=== PATIENT | male | born 1980 | race African-American/Black ===

== ENCOUNTER 2018-07-18 14:48 | Emergency (ER) | payer SELFPAY ==
[2018-07-18] MEDS ORDERED: ASPIRIN 81 MG TABLET, CHEWABLE PO ONE (16:37)
--- NOTE | 2018-07-18 16:44 | ER Document Report ---
ED Medical Screen (RME) - General Chief Complaint: Chest Pain Stated Complaint: LEG PAIN Time Seen by Provider: 07/18/18 16:43 Primary Care Provider: KURT LANDA MD [Primary Care Provider] - Follow up as needed TRAVEL OUTSIDE OF THE [place] IN LAST 30 DAYS: No - HPI Notes: 07/18/18 16:43 Patient complaint of chest pain and shortness of breath which started 4 days ago. He also complained of left leg pain and swelling and also right leg pain and swelling. 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 On exam patient is obese. Left calf is tender to palpation with edema. - Related Data Allergies/Adverse Reactions: No Known Allergies Allergy (Verified 07/18/18 14:55) Past Medical History - Social History Frequency of alcohol use: Rare Drug Abuse: None Renal/ Medical History: Denies: Hx Peritoneal Dialysis - Immunizations Hx Diphtheria, Pertussis, Tetanus Vaccination: Yes Physical Exam - Vital signs Vitals: Temp Pulse Resp BP Pulse Ox 98.1 F 81 15 128/81 H 93 07/18/18 15:29 07/18/18 15:29 07/18/18 15:29 07/18/18 15:29 07/18/18 15:29 Course - Vital Signs Vital signs: Temp Pulse Resp BP Pulse Ox 98.1 F 80 15 128/81 H 98 07/18/18 15:29 07/18/18 16:39 07/18/18 15:29 07/18/18 15:29 07/18/18 16:39 Doctor's Discharge - Discharge Referrals: KURT LANDA MD [Primary Care Provider] - Follow up as needed
[2018-07-18 17:13] LABS: ABSOLUTE EOSINOPHILS # (AUTO) 0.1 10^3/uL (0.0-0.6); ABSOLUTE LYMPHOCYTES (AUTO) 1.2 10^3/uL (0.5-4.7); ABSOLUTE MONOCYTES (AUTO) 0.3 10^3/uL (0.1-1.4); ABSOLUTE NEUT (AUTO) 2.9 10^3/uL (1.7-8.2); BASOPHILS % (AUTO) 0.7 % (0-2); EOSINOPHILS % (AUTO) 2.9 % (0-6); HEMATOCRIT 43.7 % (37.9-51.0); LYMPHOCYTES % (AUTO) 26.7 % (13-45); MEAN CORPUSCULAR HEMOGLOBIN 29.1 pg (27.0-33.4); MEAN CORPUSCULAR HGB CONC 34.4 g/dL (32.0-36.0); MEAN CORPUSCULAR VOLUME 85 fl (80-97); MONOCYTES % (AUTO) 6.7 % (3-13); PLATELET COUNT 247 10^3/uL (150-450); RED BLOOD COUNT 5.16 10^6/uL (4.35-5.55); RED CELL DISTRIBUTION WIDTH 13.7 % (11.5-14.0); TOTAL CELLS COUNTED % (AUTO) 100 %; WHITE BLOOD COUNT 4.5 10^3/uL (4.0-10.5)
[2018-07-18 17:18] LABS: INTERNATIONAL RATION (INR) 1.02; PROTHROMBIN TIME 13.9 SEC (11.4-15.4)
[2018-07-18 17:19] LABS: PARTIAL THROMBOPLASTIN TIME 34.3 SEC (23.5-35.8)
[2018-07-18 17:31] LABS: D-DIMER < 0.27 ug/mL (0.00-0.50)
[2018-07-18 17:37] LABS: ALANINE AMINOTRANSFERASE 34 U/L (21-72); ALBUMIN 4.6 g/dL (3.5-5.0); ALKALINE PHOSPHATASE 74 U/L (38-126); ANION GAP 9 (5-19); ASPARTATE AMINO TRANSFERASE 25 U/L (17-59); BILIRUBIN,DIRECT 0.2 mg/dL (0.0-0.4); BILIRUBIN,TOTAL 0.5 mg/dL (0.2-1.3); BLOOD UREA NITROGEN 14 mg/dL (7-20); CALCIUM 9.8 mg/dL (8.4-10.2); CARBON DIOXIDE 26 mmol/L (22-30); CHLORIDE 105 mmol/L (98-107); CREATINE KINASE 326 U/L (55-170); GLUCOSE 95 mg/dL (75-110); POTASSIUM 4.2 mmol/L (3.6-5.0); SODIUM 139.7 mmol/L (137-145); TOTAL PROTEIN 7.5 g/dL (6.3-8.2)
--- NOTE | 2018-07-18 17:47 | RADIOLOGY REPORT (SQ) ---
EXAM DESCRIPTION: CHEST SINGLE VIEW COMPLETED DATE/TIME: 07/18/2018 5:16 pm REASON FOR STUDY: chest pain COMPARISON: None. EXAM PARAMETERS: NUMBER OF VIEWS: One view. TECHNIQUE: Single frontal radiographic view of the chest acquired. RADIATION DOSE: NA LIMITATIONS: None. FINDINGS: LUNGS AND PLEURA: No opacities, masses or pneumothorax. No pleural effusion. MEDIASTINUM AND HILAR STRUCTURES: No masses. Contour normal. HEART AND VASCULAR STRUCTURES: Heart normal in size. Normal vasculature. BONES: No acute findings. HARDWARE: None in the chest. OTHER: No other significant finding. IMPRESSION: NO ACUTE RADIOGRAPHIC FINDING IN THE CHEST. TECHNICAL DOCUMENTATION: JOB ID: [id number] [employer]- All Rights Reserved Reading location - IP/workstation name: [email or web address]
[2018-07-18 17:48] LABS: CREATINE KINASE MB 2.08 ng/mL (<4.55); NT PRO BNP 91 pg/mL (<125)
[2018-07-18 17:50] LABS: TROPONIN I < 0.012 ng/mL
--- NOTE | 2018-07-18 19:28 | EKG REPORT ---
SEVERITY:- ABNORMAL ECG - SINUS RHYTHM BORDERLINE LEFT AXIS DEVIATION NONSPECIFIC ST-T CHANGES- INFERIOR LEADS : Confirmed by: Ralf Song MD 18-Jul-2018 19:28:17
--- NOTE | 2018-07-18 23:55 | ER Document Report ---
ED General - General Chief Complaint: Chest Pain Stated Complaint: LEG PAIN Time Seen by Provider: 07/18/18 16:43 Primary Care Provider: KURT LANDA MD [ACTIVE STAFF] - Follow up as needed Notes: Patient is a 37-year-old male who presents the emergency permit with a chief complaint of chest pain and leg pain. 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 He is visiting from [place] and took a long car ride. He is currently on Xarelto. His symptoms started . He continues to have chest pain. TRAVEL OUTSIDE OF THE [place] IN LAST 30 DAYS: No - Related Data Allergies/Adverse Reactions: No Known Allergies Allergy (Verified 07/18/18 14:55) Past Medical History - Social History Smoking Status: Former Smoker Frequency of alcohol use: Rare Drug Abuse: None Family History: Reviewed & Not Pertinent Patient has suicidal ideation: No Patient has homicidal ideation: No Renal/ Medical History: Denies: Hx Peritoneal Dialysis - Immunizations Hx Diphtheria, Pertussis, Tetanus Vaccination: Yes Review of Systems - Review of Systems Notes: REVIEW OF SYSTEMS: CONSTITUTIONAL : Denies recent illness. Denies recent unintentional weight loss. Denies fever, chills, or sweats. EENT: Denies eye, ear, throat, or mouth pain, discharge, or symptoms. Denies nasal or sinus congestion. CARDIOVASCULAR: See HPI RESPIRATORY: Denies shortness of breath, cough, congestion, difficulty kamran athing, or wheezing. GASTROINTESTINAL: Denies nausea, vomiting, and diarrhea. Denies abdominal pain. Denies constipation. GENITOURINARY: Denies difficulty urinating, burning, blood in urine, urgency or frequency. MUSCULOSKELETAL: Denies neck and back pain. Denies joint pain or swelling. SKIN: Denies rash, itchiness, or lesions HEMATOLOGIC : Denies easy bruising or bleeding. LYMPHATIC: Denies swollen, painful, enlarged glands. NEUROLOGICAL: Denies no numbness or tingling denies weakness. Denies headache. Denies altered mental status. Denies alteration in speech. PSYCHIATRIC: Denies stress, anxiety, alteration in sleep patterns, or depression. All other systems reviewed and negative. Physical Exam - Vital signs Vitals: Temp Pulse Resp BP Pulse Ox 98.1 F 81 15 128/81 H 93 07/18/18 15:29 07/18/18 15:29 07/18/18 15:29 07/18/18 15:29 07/18/18 15:29 - Notes Notes: PHYSICAL EXAMINATION: GENERAL: Appears well, healthy, well-nourished, no acute distress. HEAD: Normocephalic, atraumatic. EYES: PERRL, conjunctiva normal, all extraocular movements intact, sclera nonicteric ENT: Moist mucous membranes. NECK: Supple, no noticeable swelling, redness, rash. Normal range of motion. LUNGS: Equal breath sounds bilaterally and clear to auscultation. No wheezes rales or rhonchi. CARDIOVASCULAR: S1-S2, regular rate, regular rhythm. Radial pulses 2+, normal. ABDOMEN: Normoactive bowel sounds. Soft, nontender, no guarding, no rebound tenderness, and no masses palpated. EXTREMITIES: Normal strength and range of motion, no pitting or edema. No cyanosis. NEUROLOGICAL: Moves all extremities upon command. Strength 5/5 in all extr emities. PSYCH: Normal mood, normal affect. SKIN: Warm, dry. No rash, lesions, ulcerations noted. Normal skin turgor. Course - Re-evaluation Re-evalutation: 07/18/18 23:55 The patient's d-dimer is negative for any DVT. He is continuing to ask for a CT of the chest to rule out any PE because he still feels the chest pain. Awaiting callback from Dr. Li for official ultrasound read. 07/19/18 01:47 The patient's CTA is negative at this time. Venous Doppler studies are negative for DVT. I have discussed the results with him. I have given him strict follow-up precautions. He will be discharged with Tylenol for pain control. Verbal discharge instructions were given to the patient. They verbalized understanding. They are stable for discharge. - Vital Signs Vital signs: Temp Pulse Resp BP Pulse Ox 98.1 F 86 18 123/77 100 07/18/18 15:29 07/19/18 02:15 07/19/18 02:15 07/19/18 02:15 07/19/18 02:15 - Laboratory Result Diagrams: 07/18/18 17:00 07/18/18 17:00 Laboratory results interpreted by me: 07/18/18 17:00 Creatine Kinase 326 H - EKG Interpretation by Me Additional EKG results interpreted by me: 07/18/18 23:58 Rate 80. Sinus rhythm. OK 164; QRS 88; QT 388; QTC [address] elevations or depressions. Discharge - Discharge Clinical Impression: Leg swelling Chest pain Qualifiers: Chest pain type: unspecified Qualified Code(s): R07.9 - Chest pain, unspecified Condition: Stable Disposition: HOME, SELF-CARE Additional Instructions: You were seen today in the emergency department for chest pain and leg swelling. Your CT is normal. Your labs are normal. The cause of your chest pain is unknown. Please follow-up with your primary care provider in regards to this visit. Please continue to take your medication as prescribed. You may take Tylenol 1000 mg every 6 hours as needed for pain. If you develop shortness of breath, difficulty breathing, worsening symptoms, or any symptoms that are worrisome to you, please return to the emergency department. Forms: Return to Work Referrals: KURT LANDA MD [ACTIVE STAFF] - Follow up as needed
--- NOTE | 2018-07-19 00:41 | RADIOLOGY REPORT (SQ) ---
US LOWER EXTREMITY VEINS HISTORY: Leg pain and swelling. EXAM DATE: 07/18/2018 16:39 COMPARISON: None. TECHNIQUE: Mccullough-scale, color Doppler and spectral Doppler images of the bilateral lower extremity veins were obtained. FINDINGS: RIGHT: The right common femoral, superficial femoral and popliteal veins are patent and compressible. Normal augmentation and color Doppler blood flow in the aforementioned veins. The visualized calf veins are also patent. LEFT: The left common femoral, superficial femoral and popliteal veins are patent and compressible. Normal augmentation and color Doppler blood flow in the aforementioned veins. The visualized calf veins are also patent. IMPRESSION: No evidence of deep venous thrombosis in the bilateral lower extremities.
--- NOTE | 2018-07-19 01:23 | RADIOLOGY REPORT (SQ) ---
CLINICAL HISTORY: chest pain; DVT COMPARISON: None. TECHNIQUE: CT CHEST ANGIOGRAPHY WITHOUT THEN WITH IV CONTRAST on 07/18/2018 11:47 PM CDT. MIPS reconstructions were generated. This exam was performed according to our departmental dose-optimization program, which includes automated exposure control, adjustment of the mA and/or kV according to patient size and/or use of iterative reconstruction technique. MIP images were generated. FINDINGS: Thoracic aorta is normal in course and caliber without aneurysm or dissection. Pulmonary arteries are adequately opacified without acute or chronic filling defects. The heart is normal in size. There is no pericardial effusion. Intrathoracic lymph nodes are not enlarged. There is no pleural effusion, pleural thickening or pneumothorax. Central airways are patent. Lungs are clear with no consolidation, mass or interstitial lung disease. There are no acute abnormalities within the limited images of the upper abdomen. There are no acute osseous findings. No suspicious bony lesions. IMPRESSION: No aortic dissection or aneurysm. No pulmonary embolus. No pneumonia.
[2018-07-19 02:16] VITALS: BP 123/77
== END 2018-07-19 02:16 | disposition home or self-care (01) ==
LOC: ER 14:48
DX: R07.9 Chest pain, unspecified (principal); M79.89 Other specified soft tissue disorders; Z86.718 Personal history of other venous thrombosis and embolism; Z79.01 Long term (current) use of anticoagulants; Z87.891 Personal history of nicotine dependence
CPT/HCPCS: 36415; 71045; 71275; 80053; 82550; 82553; 83880; 84484; 85025; 85379; 85610; 85730; 93005; 93010; 93970; 99285

== ENCOUNTER 2019-02-27 10:12 | Observation (INO) | payer MEDICAID ==
--- NOTE | 2019-02-27 10:27 | ER Document Report ---
ED Medical Screen (RME) - General Chief Complaint: Abdominal Pain Stated Complaint: ABDOMINAL/SIDE PAIN Time Seen by Provider: 02/27/19 10:21 Mode of Arrival: Wheelchair Information source: Patient Notes: Patient presents complaining of right upper quadrant abdominal pain that radiates through to his back. Patient has a known history of gallstones. Patient denies any urinary symptoms. No nausea vomiting or diarrhea. Pain started at 3:00 this morning. hx: Gallstones, chronic back pain, spinal cord surgery, dyslipidemia, PE, AR I have greeted and performed a rapid initial assessment of this patient. A comprehensive ED assessment and evaluation of the patient, analysis of test results and completion of the medical decision making process will be conducted by additional ED providers. TRAVEL OUTSIDE OF THE [place] IN LAST 30 DAYS: No - Related Data Allergies/Adverse Reactions: No Known Allergies Allergy (Verified 07/18/18 14:55) Past Medical History Renal/ Medical History: Denies: Hx Peritoneal Dialysis - Immunizations Hx Diphtheria, Pertussis, Tetanus Vaccination: Yes Physical Exam - General General appearance: Appears well, Alert Notes: Right upper quadrant tenderness
--- NOTE | 2019-02-27 11:18 | RADIOLOGY REPORT (SQ) ---
EXAM DESCRIPTION: U/S ABDOMEN LIMITED W/O DOP COMPLETED DATE/TIME: 02/27/2019 11:06 am REASON FOR STUDY: RUQ pain COMPARISON: None. TECHNIQUE: Dynamic and static grayscale images acquired of the abdomen and recorded on PACS. Additio nal selected color Doppler and spectral images recorded. LIMITATIONS: None. FINDINGS: PANCREAS: Obscured by overlying bowel gas. LIVER: Echotexture is coarse with increased echogenicity consistent with fatty infiltration. LIVER VASCULATURE: Normal directional flow of the main portal vein and hepatic veins. GALLBLADDER: The gallbladder wall is slightly thickened measured 4 mm. There are stones. No pericho lecystic edema. ULTRASOUND-DETECTED SNOW'S SIGN: Negative. INTRAHEPATIC DUCTS AND COMMON DUCT: CBD and intrahepatic ducts normal caliber. No filling defects. INFERIOR VENA CAVA: Not visualized. AORTA: Visualized abdominal aorta is know caliber. RIGHT KIDNEY: Normal size. Normal echogenicity. No solid or suspicious masses. No hydronephrosis. No calcifications. PERITONEAL AND RIGHT PLEURAL SPACE: No ascites or effusions. OTHER: No other significant finding. IMPRESSION: 1. Fatty infiltration of liver. 2. Thickened gallbladder wall with stones. Negative sonographic Snow's sign. TECHNICAL DOCUMENTATION: JOB ID: [id number] [employer]- All Rights Reserved Reading location - IP/workstation name: [email or web address]
[2019-02-27] MEDS ORDERED: FENTANYL CITRATE INJ/PF 100 MCG/2 ML AMPUL IV ONE ×2 (11:46→15:12)
--- NOTE | 2019-02-27 11:48 | ER Document Report ---
ED GI/ - General Chief Complaint: Abdominal Pain Stated Complaint: ABDOMINAL/SIDE PAIN Time Seen by Provider: 02/27/19 10:21 Mode of Arrival: Wheelchair Notes: 38-year-old male with history of acute TN secondary to blood clots from a spinal surgery and history of gallstones presents to the emergency department with acute right upper quadrant pain since 3 AM this morning. Patient states it woke him from his sleep and the pain radiated through to his back. Patient said that the pain is constant and he is unable to take deep breaths secondary to pain. Denies any fevers or chills, denies chest pain, denies any nausea or vomiting, denies diarrhea. TRAVEL OUTSIDE OF THE [place] IN LAST 30 DAYS: No - Related Data Allergies/Adverse Reactions: No Known Allergies Allergy (Verified 02/27/19 10:27) Past Medical History - General Information source: Patient - Social History Smoking Status: Current Some Day Smoker Chew tobacco use (# tins/day): No Frequency of alcohol use: Occasional Drug Abuse: None Family History: Reviewed & Not Pertinent Patient has suicidal ideation: No Patient has homicidal ideation: No - Past Medical History Cardiac Medical History: Reports: Hx Heart Attack, Hx Hypercholesterolemia, Hx Hypertension Renal/ Medical History: Denies: Hx Peritoneal Dialysis Past Surgical History: Reports: Hx Cardiac Catheterization - filter, Hx Orthopedic Surgery - Immunizations Hx Diphtheria, Pertussis, Tetanus Vaccination: Yes Review of Systems - Review of Systems Constitutional: See HPI EENT: No symptoms reported Cardiovascular: See HPI Respiratory: See HPI Gastrointestinal: See HPI Genitourinary: No symptoms reported Male Genitourinary: No symptoms reported Musculoskeletal: No symptoms reported Skin: No symptoms reported Hematologic/Lymphatic: No symptoms reported Neurological/Psychological: No symptoms reported Physical Exam - Vital signs Vitals: Temp Pulse Resp BP Pulse Ox 98.0 F 75 12 126/88 H 100 02/27/19 10:23 02/27/19 10:23 02/27/19 10:23 02/27/19 10:23 02/27/19 10:23 - Notes Notes: PHYSICAL EXAMINATION: Reviewed vital signs and charting by RN GENERAL: Alert, interacts well. Mild distress. HEAD: Normocephalic, atraumatic. EYES: Pupils equal and round. Extraocular movements intact. ENT: Oral mucosa moist, tongue midline. NECK: Full range of motion. Trachea midline. LUNGS: Clear to auscultation bilaterally, no wheezes, rales, or rhonchi. No respiratory distress. HEART: Regular rate and rhythm. No murmur ABDOMEN: soft, right upper quadrant tenderness to palpation. Positive Snow sign. No distention. Bowel sounds present EXTREMITIES: Moves all 4 extremities spontaneously. No edema, No cyanosis. PSYCH: Normal affect, normal mood. SKIN: Warm, dry, normal turgor. No rashes or lesions noted. Course - Re-evaluation Re-evalutation: 02/27/19 11:47 Patient in mild distress, ultrasound completed which showed gallstones and gallbladder wall thickening to 4 mm. Lab work is pending. Fentanyl 50 mcg ordered once for pain control. 02/27/19 13:25 Patient had no response to the fentanyl 50 mcg so Dilaudid 0.5 mg IV ordered once. I briefly spoke with Dr. Toney who is going to formally assess the patient. 02/27/19 14:[address] Toney who said to initiate admission under the surgical list based on previous conversation. - Vital Signs Vital signs: Temp Pulse Resp BP Pulse Ox 97.5 F 73 20 131/87 H 97 02/27/19 13:40 02/27/19 13:40 02/27/19 13:40 02/27/19 13:40 02/27/19 13:40 - Laboratory Result Diagrams: 02/27/19 11:30 02/27/19 11:30 Laboratory results interpreted by me: 02/27/19 02/27/19 11:30 11:30 Seg Neutrophils % 78.4 H Glucose 116 H Discharge - Discharge Clinical Impression: Right upper quadrant pain, Biliary colic Condition: Stable Disposition: ADMITTED INPATIENT Admitting Provider: Surgicalist
[2019-02-27 11:52] LABS: ABSOLUTE EOSINOPHILS # (AUTO) 0.1 10^3/uL (0.0-0.6); ABSOLUTE LYMPHOCYTES (AUTO) 1.4 10^3/uL (0.5-4.7); ABSOLUTE MONOCYTES (AUTO) 0.3 10^3/uL (0.1-1.4); ABSOLUTE NEUT (AUTO) 6.9 10^3/uL (1.7-8.2); BASOPHILS % (AUTO) 0.5 % (0-2); EOSINOPHILS % (AUTO) 1.1 % (0-6); HEMATOCRIT 42.5 % (37.9-51.0); HEMOGLOBIN 14.3 g/dL (13.5-17.0); LYMPHOCYTES % (AUTO) 16.1 % (13-45); MEAN CORPUSCULAR HEMOGLOBIN 28.6 pg (27.0-33.4); MEAN CORPUSCULAR HGB CONC 33.7 g/dL (32.0-36.0); MEAN CORPUSCULAR VOLUME 85 fl (80-97); MONOCYTES % (AUTO) 3.9 % (3-13); PLATELET COUNT 227 10^3/uL (150-450); RED BLOOD COUNT 5.01 10^6/uL (4.35-5.55); RED CELL DISTRIBUTION WIDTH 13.5 % (11.5-14.0); SEGMENTED NEUTROPHILS % (AUTO) 78.4 % (42-78); TOTAL CELLS COUNTED % (AUTO) 100 %; WHITE BLOOD COUNT 8.8 10^3/uL (4.0-10.5)
[2019-02-27 12:02] LABS: ALBUMIN 4.1 g/dL (3.5-5.0); ALKALINE PHOSPHATASE 79 U/L (38-126); ANION GAP 9 (5-19); ASPARTATE AMINO TRANSFERASE 31 U/L (17-59); BILIRUBIN,DIRECT 0.1 mg/dL (0.0-0.4); BILIRUBIN,TOTAL 0.4 mg/dL (0.2-1.3); BLOOD UREA NITROGEN 12 mg/dL (7-20); CALCIUM 9.2 mg/dL (8.4-10.2); CARBON DIOXIDE 26 mmol/L (22-30); CHLORIDE 103 mmol/L (98-107); GLUCOSE 116 mg/dL (75-110); POTASSIUM 4.4 mmol/L (3.6-5.0)
[2019-02-27] MEDS ORDERED: HYDROMORPHONE HCL INJ/PF 2 MG/ML AMPULE IV ONE (12:31)
[2019-02-27] MEDS ORDERED: ONDANSETRON HCL INJ/PF 4 MG/2 ML SDV IV ONE (15:11)
[2019-02-27] MEDS ORDERED: NORMAL SALINE 1000 ML 1,000 ML IV ONE (15:12)
[2019-02-27 15:24] LABS: APPEARANCE,URINE CLEAR; BILIRUBIN,URINE NEGATIVE (NEGATIVE); COLOR,URINE YELLOW; GLUCOSE, URINE NEGATIVE (NEGATIVE); KETONES,URINE NEGATIVE (NEGATIVE); PROTEIN,URINE NEGATIVE (NEGATIVE); UROBILINOGEN,URINE NEGATIVE mg/dL (<2.0)
[2019-02-27] MEDS ORDERED: DEXTROSE 50%-WATER 25 GM/50 ML DISP.SYRIN IV PRN ×2 (16:40)
[2019-02-27] MEDS ORDERED: ONDANSETRON HCL INJ/PF 4 MG/2 ML SDV IV PRN (16:40)
[2019-02-27] MEDS ORDERED: GLUCAGON,HUMAN RECOMB 1 MG INJ SUBCUT PRN (16:40)
[2019-02-27] MEDS ORDERED: DEXTROSE 40% GEL 15 GM TUBE PO PRN ×2 (16:40)
[2019-02-27] MEDS ORDERED: INFLUENZA QUAD (6MOS+) 2019-20 VAC 0.5 ML SYR IM ONE (17:31)
[2019-02-27] MEDS: MORPHINE SULFATE 10 MG/ML INJ IV PRN (18:05)
[2019-02-27] MEDS: FAMOTIDINE INJ/PF 20 MG/2 ML SDV IV SCH (21:04)
[2019-02-27] MEDS: KETOROLAC TROMETHAMINE INJ/PF 30 MG/1 ML SDV IV SCH (21:04)
[2019-02-28] MEDS: MORPHINE SULFATE 10 MG/ML INJ IV PRN ×3 (00:05→21:49)
[2019-02-28 05:07] LABS: ABSOLUTE EOSINOPHILS # (AUTO) 0.2 10^3/uL (0.0-0.6); ABSOLUTE LYMPHOCYTES (AUTO) 1.5 10^3/uL (0.5-4.7); ABSOLUTE MONOCYTES (AUTO) 0.5 10^3/uL (0.1-1.4); ABSOLUTE NEUT (AUTO) 4.9 10^3/uL (1.7-8.2); BASOPHILS % (AUTO) 0.6 % (0-2); EOSINOPHILS % (AUTO) 2.4 % (0-6); HEMATOCRIT 40.4 % (37.9-51.0); HEMOGLOBIN 13.7 g/dL (13.5-17.0); LYMPHOCYTES % (AUTO) 20.9 % (13-45); MEAN CORPUSCULAR HEMOGLOBIN 28.7 pg (27.0-33.4); MEAN CORPUSCULAR VOLUME 84 fl (80-97); MONOCYTES % (AUTO) 7.2 % (3-13); PLATELET COUNT 206 10^3/uL (150-450); RED BLOOD COUNT 4.79 10^6/uL (4.35-5.55); RED CELL DISTRIBUTION WIDTH 13.6 % (11.5-14.0); SEGMENTED NEUTROPHILS % (AUTO) 68.9 % (42-78); TOTAL CELLS COUNTED % (AUTO) 100 %; WHITE BLOOD COUNT 7.2 10^3/uL (4.0-10.5)
[2019-02-28 05:35] LABS: ALBUMIN 3.6 g/dL (3.5-5.0); ALKALINE PHOSPHATASE 57 U/L (38-126); ANION GAP 11 (5-19); ASPARTATE AMINO TRANSFERASE 25 U/L (17-59); BILIRUBIN,DIRECT 0.1 mg/dL (0.0-0.4); BILIRUBIN,TOTAL 0.7 mg/dL (0.2-1.3); BLOOD UREA NITROGEN 9 mg/dL (7-20); CALCIUM 8.8 mg/dL (8.4-10.2); CARBON DIOXIDE 24 mmol/L (22-30); CHLORIDE 107 mmol/L (98-107); GLUCOSE 83 mg/dL (75-110); POTASSIUM 4.3 mmol/L (3.6-5.0); TOTAL PROTEIN 6.5 g/dL (6.3-8.2)
[2019-02-28] MEDS: KETOROLAC TROMETHAMINE INJ/PF 30 MG/1 ML SDV IV SCH ×3 (05:40→21:49)
--- NOTE | 2019-02-28 06:44 | PDOC H&P ---
History of Present Illness Admission Date/PCP: 02/27/19 14:55 Patient complains of: Right upper quadrant pain History of Present Illness: GUERRERO STEPHEN is a 38 year old male with severe right upper quadrant pain that is unrelenting. It has been present for the last 12 hours. It was precipitated by eating a fatty meal. The pain is sharp and stabbing. It is unrelenting. It increased to the point that he had to present to the emergency department. It has been accompanied by nausea and vomiting. He denies chest pain, shortness of breath, fevers, chills, melena, hematochezia, blurry vision, dizziness, fatigue, weakness, paresthesias. Nothing makes it better. Palpation makes it worse. Past Medical History Cardiac Medical History: Reports: Myocardial Infarction, Hyperlipidema, Hypertension Psychiatric Medical History: Reports: Depression Past Surgical History Past Surgical History: Reports: Cardiac Catheterization - filter, Orthopedic Rayshawn didier Social History Smoking Status: Smoker,Current Status Unk Electronic Cigarette use?: No Number of Years Smokin Frequency of Alcohol Use: Social - Advance Directive Resuscitation Status: Full Code Family History Family History: Reviewed & Not Pertinent Parental Family History Reviewed: Yes Children Family History Reviewed: Yes Sibling(s) Family History Reviewed.: Yes Medication/Allergy Home Medications: Atorvastatin Calcium [Lipitor 40 mg Tablet] 40 mg PO QHS 02/27/19 Nitroglycerin 0.4 mg SL Q5MP PRN 02/27/19 Ondansetron HCl [Zofran 4 mg Tablet] 4 mg PO Q4HP PRN 02/27/19 Oxycodone HCl [Oxycodone HCl 10 MG Tablet] 10 mg PO Q6 02/27/19 Pregabalin [Lyrica 75 mg Capsule] 75 mg PO Q12 02/27/19 Rivaroxaban [Xarelto 10 mg Tablet] 10 mg PO DAILY 02/27/19 Allergies/Adverse Reactions: No Known Allergies Allergy (Verified 02/27/19 10:27) Review of Systems Constitutional: ABSENT: anorexia, chills, fatigue, fever(s), weakness Eyes: ABSENT: visual disturbances Ears: ABSENT: hearing changes Nose, Mouth, and Throat: ABSENT: sore throat Cardiovascular: ABSENT: chest pain Respiratory: ABSENT: cough Gastrointestinal: PRESENT: abdominal pain, nausea. ABSENT: hematemesis, hematochezia, melena Genitourinary: ABSENT: dysuria Musculoskeletal: PRESENT: back pain Integumentary: ABSENT: pruritus, rash Neurological: ABSENT: confusion, convulsions, dizziness Psychiatric: ABSENT: anxiety Endocrine: ABSENT: cold intolerance, heat intolerance Hematologic/Lymphatic: ABSENT: easy bleeding, easy bruising Physical Exam Vital Signs: Temp Pulse Resp BP Pulse Ox 98.1 F 92 18 133/92 H 98 02/27/19 16:50 02/27/19 19:00 02/27/19 16:50 02/27/19 16:50 02/27/19 16:50 Intake & Output 02/26/19 02/27/19 02/28/19 06:59 06:59 06:59 Weight 140.2 kg General appearance: PRESENT: mild distress - Abdominal pain Head exam: PRESENT: atraumatic, normocephalic Eye exam: PRESENT: EOMI, PERRLA. ABSENT: scleral icterus Mouth exam: PRESENT: moist, neck supple Teeth exam: ABSENT: poor dentation Neck exam: ABSENT: tenderness, thyromegaly, tracheal deviation, tracheostomy Respiratory exam: PRESENT: clear to auscultation gretel, unlabored. ABSENT: wheezes Cardiovascular exam: PRESENT: RRR Pulses: PRESENT: normal radial pulses Vascular exam: PRESENT: normal capillary refill. ABSENT: pallor GI/Abdominal exam: PRESENT: Snow's sign, soft, tenderness. ABSENT: distended Rectal exam: PRESENT: deferred Extremities exam: ABSENT: clubbing Musculoskeletal exam: ABSENT: deformity Neurological exam: PRESENT: alert, awake, oriented to person, oriented to place, oriented to time, oriented to situation, CN II-XII grossly intact Psychiatric exam: ABSENT: agitated, anxious, depressed Focused psych exam: ABSENT: delusional Skin exam: ABSENT: cyanosis, erythema, jaundice Results Laboratory Results: 02/27/19 11:30 02/27/19 11:30 02/27/19 02/27/19 02/27/19 11:30 11:30 14:45 WBC 8.8 RBC 5.01 Hgb 14.3 Hct 42.5 MCV 85 MCH 28.6 MCHC 33.7 RDW 13.5 Plt Count 227 Seg Neutrophils % 78.4 H Sodium 138.0 Potassium 4.4 Chloride 103 Carbon Dioxide 26 Anion Gap 9 BUN 12 Creatinine 0.97 Est GFR ( Amer) > 60 Glucose 116 H Calcium 9.2 Total Bilirubin 0.4 AST 31 Alkaline Phosphatase 79 Total Protein 7.0 Albumin 4.1 Lipase 102.1 Urine Color YELLOW Urine Appearance CLEAR Urine pH 7.0 Ur Specific Madill 1.010 Urine Protein NEGATIVE Urine Glucose (UA) NEGATIVE Urine Ketones NEGATIVE Urine Blood NEGATIVE Impressions: Abdomen Ultrasound 02/27/19 10:26 IMPRESSION: 1. Fatty infiltration of liver. 2. Thickened gallbladder wall with stones. Negative sonographic Snow's sign. Assessment & Plan - Diagnosis (1) Acute cholecystitis Is this a current diagnosis for this admission?: Yes - Plan Summary Plan Summary: This is a 38-year-old male with right upper quadrant pain, gallstones, thickened gallbladder wall. The patient does have a Snow sign on examination. I believe he is suffering from acute cholecystitis. I will admit him to the hospital, start him on intravenous antibiotics, and plan for cholecystectomy in the near future. The patient is on Xarelto. He is only taking 10 mg (as opposed to the 20 mg full dose). His last dose was the evening of 02/26/2019. The patient should be fit for surgery by tomorrow afternoon. The plan has been discussed with the patient and his family. They are in agreement with the treatment course as laid out by me.
[2019-02-28] MEDS ORDERED: PIPERACILLIN SODIUM/TAZOBACTAM 3.375 GM in NORMAL SALINE 100 ML IV SCH (07:00)
[2019-02-28] MEDS ORDERED: ONDANSETRON HCL INJ/PF 4 MG/2 ML SDV IV PRN (08:00)
[2019-02-28] MEDS: FAMOTIDINE INJ/PF 20 MG/2 ML SDV IV SCH ×2 (09:21→21:49)
[2019-02-28] MEDS: PIPERACILLIN SODIUM/TAZOBACTAM 3.375 GM in NORMAL SALINE 100 ML IV SCH ×3 (09:22→21:50)
[2019-02-28] MEDS ORDERED: DEXAMETHASONE SOD PHOSPHATE INJ 4 MG/1 ML VIAL ONE (10:35)
[2019-02-28] MEDS ORDERED: NEOSTIGMINE METHYLSULFATE 10 MG/10 ML VIAL ONE (10:35)
[2019-02-28] MEDS ORDERED: GLYCOPYRROLATE 1 MG/5 ML VIAL ONE (10:35)
[2019-02-28] MEDS ORDERED: ONDANSETRON HCL INJ/PF 4 MG/2 ML SDV ONE (10:35)
[2019-02-28] MEDS ORDERED: SUCCINYLCHOLINE CHLORIDE INJ 200 MG/10 ML VIAL ONE (10:35)
[2019-02-28] MEDS ORDERED: KETOROLAC TROMETHAMINE 60 MG/2 ML SDV ONE (10:35)
[2019-02-28] MEDS ORDERED: ROCURONIUM BROMIDE INJ 50 MG/5 ML VIAL IV ONE (10:35)
[2019-02-28] MEDS ORDERED: FENTANYL CITRATE INJ/PF 100 MCG/2 ML AMPUL ONE ×2 (16:09→16:11)
[2019-02-28] MEDS ORDERED: MIDAZOLAM 2 MG/2 ML INJ ONE (16:10)
[2019-02-28] MEDS ORDERED: PROPOFOL INJ 200 MG/20 ML VIAL IV ONE (16:10)
[2019-02-28] MEDS ORDERED: BUPIVACAINE HCL 0.25 % INJ/PF (2.5 MG/1 ML) 30 ML VIAL ONE (16:15)
[2019-02-28] MEDS ORDERED: MORPHINE SULFATE 10 MG/ML INJ IV PRN (16:42)
[2019-02-28] MEDS ORDERED: PROMETHAZINE HCL INJ 25 MG/1 ML VIAL IV PRN ×2 (16:42)
[2019-02-28] MEDS ORDERED: DIPHENHYDRAMINE HCL 50 MG/ML VIAL IV PRN (16:42)
[2019-02-28] MEDS ORDERED: FENTANYL CITRATE INJ/PF 100 MCG/2 ML AMPUL IV PRN ×3 (16:42)
[2019-02-28] MEDS ORDERED: MEPERIDINE HCL/PF INJ 25 MG/1 ML DISP.SYRIN IV PRN (16:42)
[2019-02-28] MEDS ORDERED: OXYCODONE-ACETAMINOPHEN 5-325 MG TABLET PO PRN ×2 (16:42)
--- NOTE | 2019-02-28 19:55 | Operative Report ---
Operative Report DATE OF SURGERY: 02/28/19 PREOPERATIVE DIAGNOSIS: Cholelithiasis. Acute cholecystitis POSTOPERATIVE DIAGNOSIS: Same OPERATION: Laparoscopic cholecystectomy SURGEON: ARAMIS LYNNE ANESTHESIA: GA TISSUE REMOVED OR ALTERED: Gallbladder COMPLICATIONS: None ESTIMATED BLOOD LOSS: 20ccs QUANTITATIVE BLOOD LOSS: 20 INTRAOPERATIVE FINDINGS: Acute calculus cholecystitis PROCEDURE: Patient was placed in supine position and after adequate general anesthesia the abdomen was then prepped and draped in the usual sterile fashion. Appropriate timeout was then called. An infraumbilical incision was made in the fascia identified and Karen was placed on each side and the fascia divided within the Adam clamps. Sutures using 0 Vicryl were placed on each side of the fascia and [place]'s released. The fascial defect was then digitally probe and it appears that the peritoneum is pushed down further. Because of this the peritoneum was then opened bluntly with a hemostat and another suture lifting up the peritoneum to the fascia was done on each side. Next a son trocar was then inserted into the abdominal cavity. Initially shorter balloon trocar was placed in was not long enough and therefore in old-fashioned Dempsey trocar was inserted were the trocar anchored to the fascia with the use of the stay sutures tied over the phalanges of the trocar. The neck CO2 insufflated to pressure 15 mmHg. 3 other trochars were placed at 12 mm in the subxiphoid and two 5 mm in the right upper quadrant under direct vision. The gallbladder was identified noted adhesions around it. There was stone at the fundus of the gallbladder that was stuck. The gallbladder is noted to be tense and this was then released with aspiration of bile through the long needle. The gallbladder was unable to be grasped just below the stone where the gallbladder is noted to be quite intrahepatic. The for further blunt dissection and with the use of harmonic alverto was then to release the adhesions on the gallbladder. Gallbladder also noted to be quite thickened wall. The infundibulum was then grasped and the cystic duct and cystic artery were then dissected. After the angle of safety identified the cystic duct was then clipped triple proximally and one distally and divided between the distal clips. Cystic artery also clipped and divided with the use of harmonic alverto between the clip in the gallbladder. The gallbladder was then taken of the liver bed with the use of harmonic alverto as noted to be partially intrahepatic and the gallbladder inadvertently opened and some bile extruded out. This was then suctioned out and irrigated. The gallbladder was then completely removed from the liver bed with the use of the harmonic alverto. Adequate hemostasis noted and a Surgicel was then placed over the liver bed to make sure about the hemostasis. The gallbladder was then placed in an Endobag and pulled out through the umbilical port. Some trocar inserted back and liver bed further inspected no evidence of active bleeding noted. A drain was then placed through the right lower most trocar and placed around the liver bed. This was then anchored to the skin with 2-0 silk. Next the trochars were all removed and CO2 extruded through all the trocar sites. The fascial defect in the infraumbilical area was then closed with a [id number] suture using 0 Vicryl and the 2 stay sutures tied together for better closure. The subcu was then irrigated with saline solution and all the skin incisions closed with the 4-0 Vicryl undyed in a running fashion. Half percent Marcaine was then injected to the fashion to the old incision sites using 20 cc. Patient tolerated procedure well. Needle instrument sponge count were all correct and estimated blood loss about 20 cc. Patient brought to recovery room in satisfactory condition.
--- NOTE | 2019-02-28 20:18 | EKG REPORT ---
SEVERITY:- NORMAL ECG - SINUS RHYTHM : Confirmed by: Karime Gary MD 28-Feb-2019 20:17:29
[2019-03-01] MEDS: MORPHINE SULFATE 10 MG/ML INJ IV PRN (01:56)
[2019-03-01] MEDS: PIPERACILLIN SODIUM/TAZOBACTAM 3.375 GM in NORMAL SALINE 100 ML IV SCH ×2 (02:00→09:21)
[2019-03-01 05:36] LABS: ABSOLUTE LYMPHOCYTES (AUTO) 0.6 10^3/uL (0.5-4.7); ABSOLUTE MONOCYTES (AUTO) 0.3 10^3/uL (0.1-1.4); ABSOLUTE NEUT (AUTO) 9.4 10^3/uL (1.7-8.2); BASOPHILS % (AUTO) 0.4 % (0-2); HEMATOCRIT 41.1 % (37.9-51.0); HEMOGLOBIN 13.8 g/dL (13.5-17.0); LYMPHOCYTES % (AUTO) 5.8 % (13-45); MEAN CORPUSCULAR HEMOGLOBIN 28.6 pg (27.0-33.4); MEAN CORPUSCULAR HGB CONC 33.6 g/dL (32.0-36.0); MEAN CORPUSCULAR VOLUME 85 fl (80-97); PLATELET COUNT 225 10^3/uL (150-450); RED BLOOD COUNT 4.84 10^6/uL (4.35-5.55); RED CELL DISTRIBUTION WIDTH 13.4 % (11.5-14.0); SEGMENTED NEUTROPHILS % (AUTO) 90.8 % (42-78); TOTAL CELLS COUNTED % (AUTO) 100 %; WHITE BLOOD COUNT 10.4 10^3/uL (4.0-10.5)
[2019-03-01] MEDS: OXYCODONE-ACETAMINOPHEN 5-325 MG TABLET PO PRN ×2 (05:41→10:18)
[2019-03-01] MEDS ORDERED: NORMAL SALINE 500 ML IV ONE (05:45)
[2019-03-01 05:59] LABS: INTERNATIONAL RATION (INR) 1.12; PROTHROMBIN TIME 14.5 SEC (11.4-15.4)
[2019-03-01 06:04] LABS: ALBUMIN 3.8 g/dL (3.5-5.0); ALKALINE PHOSPHATASE 60 U/L (38-126); ANION GAP 10 (5-19); ASPARTATE AMINO TRANSFERASE 48 U/L (17-59); BILIRUBIN,DIRECT 0.1 mg/dL (0.0-0.4); BILIRUBIN,TOTAL 0.7 mg/dL (0.2-1.3); BLOOD UREA NITROGEN 12 mg/dL (7-20); CALCIUM 9.2 mg/dL (8.4-10.2); CARBON DIOXIDE 23 mmol/L (22-30); CHLORIDE 105 mmol/L (98-107); GLUCOSE 133 mg/dL (75-110); POTASSIUM 4.4 mmol/L (3.6-5.0); TOTAL PROTEIN 6.8 g/dL (6.3-8.2)
[2019-03-01] MEDS: FAMOTIDINE INJ/PF 20 MG/2 ML SDV IV SCH (10:18)
--- NOTE | 2019-03-01 11:40 | PDOC DISCHARGE SUMMARY ---
General - Admit/Disc Date/PCP Admission Date/Primary Care Provider: 02/27/19 14:55 Discharge Date: 03/01/19 - Discharge Diagnosis Final Diagnosis: acute cholecystitis Cholelithiasis Morbid obesity - Assessment Summary: Had laparoscopic cholecystectomy for cute calculus cholecystitis 02/28/19. Stable post op and tolerting regular diet. Having flatus. - Additional Information Resuscitation Status: Full Code Discharge Diet: As Tolerated Discharge Activity: No Lifting Over 10 Pounds, No Lifting/Push/Pulling Prescriptions: Oxycodone HCl/Acetaminophen [Percocet 5-325 mg Tablet] 1 tab PO Q4HP PRN #10 tablet PRN Reason: Home Medications: Rivaroxaban [Xarelto 10 mg Tablet] 10 mg PO DAILY 02/27/19 Oxycodone HCl/Acetaminophen [Percocet 5-325 mg Tablet] 1 tab PO Q4HP PRN #10 tablet 03/01/19 History of Present Illiness History of Present Illness: GUERRERO STEPHEN is a 38 year old male Physical Exam Vital Signs: Temp Pulse Resp BP Pulse Ox 97.6 F 94 16 125/79 96 03/01/19 07:23 03/01/19 07:23 03/01/19 07:23 03/01/19 07:23 03/01/19 07:23 Intake & Output 02/28/19 03/01/19 03/02/19 06:59 06:59 06:59 Intake Total 1111 3424 100 Output Total 1700 1190 Balance -589 2234 100 Weight 143.1 kg 145.6 kg Results Laboratory Results: WBC 10.4 10^3/uL (4.0-10.5) 03/01/19 05:24 RBC 4.84 10^6/uL (4.35-5.55) 03/01/19 05:24 Hgb 13.8 g/dL (13.5-17.0) 03/01/19 05:24 Hct 41.1 % (37.9-51.0) 03/01/19 05:24 MCV 85 fl (80-97) 03/01/19 05:24 MCH 28.6 pg (27.0-33.4) 03/01/19 05:24 MCHC 33.6 g/dL (32.0-36.0) 03/01/19 05:24 RDW 13.4 % (11.5-14.0) 03/01/19 05:24 Plt Count 225 10^3/uL (150-450) 03/01/19 05:24 Lymph % (Auto) 5.8 % (13-45) L 03/01/19 05:24 [place] % (Auto) 3.0 % (3-13) 03/01/19 05:24 Eos % (Auto) 0.0 % (0-6) 03/01/19 05:24 Baso % (Auto) 0.4 % (0-2) 03/01/19 05:24 Absolute Neuts (auto) 9.4 10^3/uL (1.7-8.2) H 03/01/19 05:24 Absolute Lymphs (auto) 0.6 10^3/uL (0.5-4.7) 03/01/19 05:24 Absolute Monos (auto) 0.3 10^3/uL (0.1-1.4) 03/01/19 05:24 Absolute Eos (auto) 0.0 10^3/uL (0.0-0.6) 03/01/19 05:24 Absolute Basos (auto) 0.0 10^3/uL (0.0-0.2) 03/01/19 05:24 Seg Neutrophils % 90.8 % (42-78) H 03/01/19 05:24 PT 14.5 SEC (11.4-15.4) 03/01/19 05:24 INR 1.12 03/01/19 05:24 Sodium 138.1 mmol/L (137-145) 03/01/19 05:24 Potassium 4.4 mmol/L (3.6-5.0) 03/01/19 05:24 Chloride 105 mmol/L (98-107) 03/01/19 05:24 Carbon Dioxide 23 mmol/L (22-30) 03/01/19 05:24 Anion Gap 10 (5-19) 03/01/19 05:24 BUN 12 mg/dL (7-20) 03/01/19 05:24 Creatinine 1.02 mg/dL (0.52-1.25) 03/01/19 05:24 Est GFR ( Amer) > 60 (>60) 03/01/19 05:24 Est GFR (MDRD) Non-Af > 60 (>60) 03/01/19 05:24 Glucose 133 mg/dL (75-110) H 03/01/19 05:24 Calcium 9.2 mg/dL (8.4-10.2) 03/01/19 05:24 Total Bilirubin 0.7 mg/dL (0.2-1.3) 03/01/19 05:24 Direct Bilirubin 0.1 mg/dL (0.0-0.4) 03/01/19 05:24 Neonat Total Bilirubin Not Reportable 03/01/19 05:24 Neonat Direct Bilirubin Not Reportable 03/01/19 05:24 Neonat Indirect Bili Not Reportable 03/01/19 05:24 AST 48 U/L (17-59) 03/01/19 05:24 ALT 47 U/L (<50) 03/01/19 05:24 Alkaline Phosphatase 60 U/L (38-126) 03/01/19 05:24 Total Protein 6.8 g/dL (6.3-8.2) 03/01/19 05:24 Albumin 3.8 g/dL (3.5-5.0) 03/01/19 05:24 Lipase 102.1 U/L (23-300) 02/27/19 11:30 Urine Color YELLOW 02/27/19 14:45 Urine Appearance CLEAR 02/27/19 14:45 Urine pH 7.0 (5.0-9.0) 02/27/19 14:45 Ur Specific [place] 1.010 02/27/19 14:45 Urine Protein NEGATIVE mg/dL (NEGATIVE) 02/27/19 14:45 Urine Glucose (UA) NEGATIVE mg/dL (NEGATIVE) 02/27/19 14:45 Urine Ketones NEGATIVE mg/dL (NEGATIVE) 02/27/19 14:45 Urine Blood NEGATIVE (NEGATIVE) 02/27/19 14:45 Urine Nitrite (Reflex) NEGATIVE (NEGATIVE) 02/27/19 14:45 Urine Bilirubin NEGATIVE (NEGATIVE) 02/27/19 14:45 Urine Urobilinogen NEGATIVE mg/dL (<2.0) 02/27/19 14:45 Leukocyte Esterase Rfl NEGATIVE (NEGATIVE) 02/27/19 14:45 Urine Mucus (Auto) RARE /LPF 02/27/19 14:45 Urine Ascorbic Acid NEGATIVE (NEGATIVE) 02/27/19 14:45 Blood Type O POSITIVE 02/28/19 09:49 Antibody Screen NEGATIVE 02/28/19 09:49 Impressions: Abdomen Ultrasound 02/27/19 10:26 IMPRESSION: 1. Fatty infiltration of liver. 2. Thickened gallbladder wall with stones. Negative sonographic Snow's sign.
[2019-03-01 12:05] VITALS: BP 133/84
== END 2019-03-01 13:34 | disposition home or self-care (01) ==
LOC: ER 10:12 → INTOOBSV 14:55 → EH 14:55 → 3W 16:39
PROVIDERS: ATTEND Surgery
PROC: 0FT44ZZ Resection of Gallbladder, Percutaneous Endoscopic Approach (ICD-10-PCS; principal; 2019-02-28 16:00)
DX: K80.12 Calculus of gallbladder with acute and chronic cholecystitis without obstruction (principal); E66.01 Morbid (severe) obesity due to excess calories; R14.3 Flatulence; E78.5 Hyperlipidemia, unspecified; G89.29 Other chronic pain; M54.9 Dorsalgia, unspecified; I25.2 Old myocardial infarction; F17.200 Nicotine dependence, unspecified, uncomplicated; Z79.02 Long term (current) use of antithrombotics/antiplatelets; Z86.711 Personal history of pulmonary embolism; Z98.890 Other specified postprocedural states
CPT/HCPCS: 99285; 96374; 96375; 86900; 86901; 36415 ×3; 86850; 83690; 85025 ×3; 85610; 80053 ×3; 81001; 88304 ×2; 76705; 93005; 93010; 00790; 47562; J2250; J3490 ×3; J1100; J1885 ×3; J3010 ×2; J2270 ×3; J2710; J1170; J0330; J2405 ×2; J7050 ×2; J7030; J7040; J2704; S0028 ×3; J2543 ×2; 790; G0378

== ENCOUNTER 2019-03-15 10:52 | Emergency (ER) | payer SELFPAY ==
[2019-03-15] MEDS ORDERED: HYDROMORPHONE HCL INJ/PF 2 MG/ML AMPULE IV ONE ×3 (11:57→16:17)
--- NOTE | 2019-03-15 11:57 | ER Document Report ---
ED Medical Screen (RME) - General Chief Complaint: Hip Injury Stated Complaint: FALL/HIP PAIN Time Seen by Provider: 03/15/19 11:41 Primary Care Provider: CORRINA CANALES MD [Primary Care Provider] - Follow up as needed Notes: 38-year-old male with past medical history of spinal surgeries in 2017 and 2018, blood clots on Xarelto currently presents to the emergency department after a mechanical fall off of his porch this morning. Patient states he tried to step down off of his wood porch and he slipped and fell and landed on his left hip. Patient does complain of left flank pain, did not hit his head, no LOC. Of note, patient does have baseline neuro deficits of his left lower extremity due to his surgeries. Exam: Well-appearing in distress, 1+ DP pulse palpated left lower extremity with brisk cap refill, patient is able to flex and extend the ankle, patient with baseline sensory deficit in the left lower extremity. Patient with tenderness to palpation of the left flank/hip area. I have greeted and performed a rapid initial assessment of this patient. A comprehensive ED assessment and evaluation of the patient, analysis of test results and completion of medical decision making process will be conducted by an additional ED providers. TRAVEL OUTSIDE OF THE [place] IN LAST 30 DAYS: No - Related Data Allergies/Adverse Reactions: No Known Allergies Allergy (Verified 02/27/19 10:27) Past Medical History - Past Medical History Cardiac Medical History: Reports: Hx Heart Attack, Hx Hypercholesterolemia, Hx Hypertension Renal/ Medical History: Denies: Hx Peritoneal Dialysis Psychiatric Medical History: Reports: Hx Depression Past Surgical History: Reports: Hx Cardiac Catheterization - filter, Hx Orthopedic Surgery - Immunizations Hx Diphtheria, Pertussis, Tetanus Vaccination: Yes Physical Exam - Vital signs Vitals: Temp Pulse Resp BP Pulse Ox 97.7 F 97 20 147/85 H 98 03/15/19 10:57 03/15/19 10:57 03/15/19 10:57 03/15/19 10:57 03/15/19 10:57 Course - Vital Signs Vital signs: Temp Pulse Resp BP Pulse Ox 97.7 F 97 20 147/85 H 98 03/15/19 10:57 03/15/19 10:57 03/15/19 10:57 03/15/19 10:57 03/15/19 10:57 Doctor's Discharge - Discharge Referrals: CORRINA CANALES MD [Primary Care Provider] - Follow up as needed
[2019-03-15 12:49] LABS: ABSOLUTE BASOPHILS # (AUTO) 0.1 10^3/uL (0.0-0.2); ABSOLUTE EOSINOPHILS # (AUTO) 0.1 10^3/uL (0.0-0.6); ABSOLUTE LYMPHOCYTES (AUTO) 1.4 10^3/uL (0.5-4.7); ABSOLUTE MONOCYTES (AUTO) 0.3 10^3/uL (0.1-1.4); ABSOLUTE NEUT (AUTO) 4.1 10^3/uL (1.7-8.2); BASOPHILS % (AUTO) 0.9 % (0-2); EOSINOPHILS % (AUTO) 1.7 % (0-6); HEMATOCRIT 42.6 % (37.9-51.0); HEMOGLOBIN 14.5 g/dL (13.5-17.0); LYMPHOCYTES % (AUTO) 23.1 % (13-45); MEAN CORPUSCULAR HEMOGLOBIN 28.9 pg (27.0-33.4); MEAN CORPUSCULAR VOLUME 85 fl (80-97); PLATELET COUNT 326 10^3/uL (150-450); RED BLOOD COUNT 5.02 10^6/uL (4.35-5.55); RED CELL DISTRIBUTION WIDTH 13.7 % (11.5-14.0); SEGMENTED NEUTROPHILS % (AUTO) 69.3 % (42-78); TOTAL CELLS COUNTED % (AUTO) 100 %; WHITE BLOOD COUNT 5.9 10^3/uL (4.0-10.5)
[2019-03-15 12:58] LABS: INTERNATIONAL RATION (INR) 1.25; PROTHROMBIN TIME 15.8 SEC (11.4-15.4)
[2019-03-15 12:59] LABS: PARTIAL THROMBOPLASTIN TIME 37.7 SEC (23.5-35.8)
[2019-03-15 13:05] LABS: ANION GAP 10 (5-19); BLOOD UREA NITROGEN 14 mg/dL (7-20); CALCIUM 9.8 mg/dL (8.4-10.2); CARBON DIOXIDE 26 mmol/L (22-30); CHLORIDE 104 mmol/L (98-107); GLUCOSE 92 mg/dL (75-110); POTASSIUM 4.4 mmol/L (3.6-5.0)
--- NOTE | 2019-03-15 15:39 | RADIOLOGY REPORT (SQ) ---
EXAM DESCRIPTION: CT ABD/PELVIS WITH IV ONLY COMPLETED DATE/TIME: 03/15/2019 3:24 pm REASON FOR STUDY: Fall on L hip on Xarelto, r/o retroperitoneal blee COMPARISON: None. TECHNIQUE: CT scan of the abdomen and pelvis performed using helical scanning technique with dynamic intravenous contrast injection. No oral contrast. Images reviewed with lung, soft tissue, and bone windows. Reconstructed coronal and sagittal MPR images reviewed. Delayed images for evaluation of the urinary system also acquired. All images stored on PACS. All CT scanners at this facility use dose modulation, iterative reconstruction, and/or weight based d osing when appropriate to reduce radiation dose to as low as reasonably achievable (ALARA). [facility]: Dose Right [facility]: CareDose [facility]: Dose Right [facility]: Teradose 4D [facility]: BigBad CONTRAST TYPE AND DOSE: contrast/concentration: Isovue 350.00 mg/ml; Total Contrast Delivered: 92.0 ml; Total Saline Delivered: 38.3 ml RENAL FUNCTION: None required. The patient is less than 50 years old. RADIATION DOSE: CT Rad equipment meets quality standard of care and radiation dose reduction techniq ues were employed. CTDIvol: 21.1 mGy. DLP: 2524 mGy-cm.. LIMITATIONS: None. FINDINGS: LOWER CHEST: No significant findings. No nodules or infiltrates. LIVER: Normal size. No masses. No dilated ducts. SPLEEN: Normal size. No focal lesions. PANCREAS: No masses. No significant calcifications. No adjacent inflammation or peripancreatic fluid collections. Pancreatic duct not dilated. GALLBLADDER: Surgically absent. ADRENAL GLANDS: No significant masses or asymmetry. RIGHT KIDNEY AND URETER: No solid masses. No significant calcifications. No hydronephrosis or hyd roureter. LEFT KIDNEY AND URETER: No solid masses. No significant calcifications. No hydronephrosis or hydr oureter. AORTA AND VESSELS: No aneurysm. No dissection. Renal arteries, SMA, celiac without stenosis. Infrare nal IVC filter, which is angulated. RETROPERITONEUM: No retroperitoneal adenopathy, hemorrhage or masses. BOWEL AND PERITONEAL CAVITY: No masses or inflammatory changes. No free fluid or peritoneal masses. APPENDIX: Normal. PELVIS: No mass. No free fluid. Normal bladder. ABDOMINAL WALL: No masses. No hernias. BONES: No significant or acute findings. OTHER: No other significant finding. IMPRESSION: 1. No CT evidence of acute traumatic injury to the abdomen or pelvis. No evidence of h emorrhage. 2. Status post cholecystectomy. 3. Angulated infrarenal IVC filter. TECHNICAL DOCUMENTATION: JOB ID: [id number] Quality ID # [id number]: Final reports with documentation of one or more dose reduction techniques (e.g., Au tomated exposure control, adjustment of the mA and/or kV according to patient size, use of iterative reconstruction technique) 2010 [employer]- All Rights Reserved Reading location - IP/workstation name: [email or web address]
--- NOTE | 2019-03-15 17:35 | ER Document Report ---
ED General - General Chief Complaint: Hip Pain Stated Complaint: FALL/HIP PAIN Time Seen by Provider: 03/15/19 11:41 Primary Care Provider: CORRINA CANALES MD [Primary Care Provider] - Follow up as needed Mode of Arrival: Wheelchair Information source: Patient Notes: 38-year-old male with past medical history of spinal surgeries in 2017 and 2018, blood clots on Xarelto currently presents to the emergency department after a mechanical fall off of his porch this morning. Patient states he tried to step down off of his wood porch and he slipped and fell and landed on his left hip. Patient does complain of left flank pain, did not hit his head, no LOC. Of n ote, patient does have baseline neuro deficits of his left lower extremity due to his surgeries. TRAVEL OUTSIDE OF THE [place] IN LAST 30 DAYS: No - Related Data Allergies/Adverse Reactions: No Known Allergies Allergy (Verified 02/27/19 10:27) Home Medications: Xarelto. Atorvastatin. muscle relaxer. Oxycodone. Lyrica Past Medical History - General Information source: Patient - Social History Smoking Status: Former Smoker Chew tobacco use (# tins/day): No Frequency of alcohol use: None Drug Abuse: None Family History: Reviewed & Not Pertinent Patient has suicidal ideation: No Patient has homicidal ideation: No - Past Medical History Cardiac Medical History: Reports: Hx Heart Attack, Hx Hypercholesterolemia, Hx Hypertension Renal/ Medical History: Denies: Hx Peritoneal Dialysis Psychiatric Medical History: Reports: Hx Depression Past Surgical History: Reports: Hx Cardiac Catheterization - filter, Hx Orthopedic Surgery - Immunizations Hx Diphtheria, Pertussis, Tetanus Vaccination: Yes Review of Systems - Review of Systems Constitutional: No symptoms reported EENT: No symptoms reported Cardiovascular: No symptoms reported Respiratory: No symptoms reported Gastrointestinal: No symptoms reported Genitourinary: No symptoms reported Male Genitourinary: No symptoms reported Musculoskeletal: See HPI Skin: No symptoms reported Hematologic/Lymphatic: No symptoms reported Neurological/Psychological: No symptoms reported Physical Exam - Vital signs Vitals: Temp Pulse Resp BP Pulse Ox 97.7 F 97 20 147/85 H 98 03/15/19 10:57 03/15/19 10:57 03/15/19 10:57 03/15/19 10:57 03/15/19 10:57 - Notes Notes: PHYSICAL EXAMINATION: GENERAL: Well-appearing, well-nourished and in no acute distress. HEAD: Atraumatic, normocephalic. EYES: Pupils equal round and reactive to light, extraocular movements intact, sclera anicteric, conjunctiva are normal. ENT: Nares patent, oropharynx clear without exudates. Moist mucous membranes. NECK: Normal range of motion, supple without lymphadenopathy LUNGS: Breath sounds clear to auscultation bilaterally and equal. No wheezes rales or rhonchi. HEART: Regular rate and rhythm without murmurs ABDOMEN: Soft, nontender, nondistended abdomen. No guarding, no rebound. No masses appreciated. Musculoskeletal: Tenderness to palpation over left lumbar paraspinous areas and left lower quadrant. NEUROLOGICAL: Cranial nerves grossly intact. Normal speech, normal gait. Normal sensory, motor exams PSYCH: Normal mood, normal affect. SKIN: Warm, Dry, normal turgor, no rashes or lesions noted. Course - Re-evaluation Re-evalutation: Laboratory 03/15/19 03/15/19 03/15/19 12:25 12:25 12:25 WBC 5.9 RBC 5.02 Hgb 14.5 Hct 42.6 MCV 85 MCH 28.9 MCHC 34.0 RDW 13.7 Plt Count 326 Lymph % (Auto) 23.1 [place] % (Auto) 5.0 Eos % (Auto) 1.7 Baso % (Auto) 0.9 Absolute Neuts (auto) 4.1 Absolute Lymphs (auto) 1.4 Absolute Monos (auto) 0.3 Absolute Eos (auto) 0.1 Absolute Basos (auto) 0.1 Seg Neutrophils % 69.3 PT 15.8 H INR 1.25 APTT 37.7 H Sodium 139.6 Potassium 4.4 Chloride 104 Carbon Dioxide 26 Anion Gap 10 BUN 14 Creatinine 0.88 Est GFR ( Amer) > 60 Est GFR (MDRD) Non-Af > 60 Glucose 92 Calcium 9.8 Abdomen/Pelvis CT 03/15/19 11:54 IMPRESSION: 1. No CT evidence of acute traumatic injury to the abdomen or pelvis. No evidence of hemorrhage. 2. Status post cholecystectomy. 3. Angulated infrarenal IVC filter. Labs and CT as outlined above. No acute findings on CT. Encourage patient to continue taking all home medications, follow-up with PCP. I did write patient for short course of pain medication to help with pain from the fall. Patient verbalizes understanding and agreement with plan and agreement with ED return precautions. The patient's emergency department workup and current diagnosis were explained to the patient and or family. Follow-up instructions were provided. Medications if prescribed were discussed. Instructions for when to return to the emergency department including specific worrisome symptoms were discussed with the patient and/or family. - Vital Signs Vital signs: Temp Pulse Resp BP Pulse Ox 97.5 F 71 16 135/67 H 97 03/15/19 17:50 03/15/19 17:50 03/15/19 17:50 03/15/19 17:50 03/15/19 17:50 - Laboratory Result Diagrams: 03/15/19 12:25 03/15/19 12:25 Laboratory results interpreted by me: 03/15/19 12:25 PT 15.8 H APTT 37.7 H Discharge - Discharge Clinical Impression: Fall with injury Qualifiers: Encounter type: initial encounter Qualified Code(s): W19.XXXA - Unspecified fall, initial encounter Condition: Stable Disposition: HOME, SELF-CARE Additional Instructions: Contusion Your injury has resulted in a contusion -- a crushing of the deep tissues. No injury to important structures was detected during the physician's exam. Contusions vary in the amount of pain they cause, and in the length of time required for healing. Typically, the area will become bruised, and will remain painful to touch for two or three weeks. However, most patients are back to working and playing within a few days. After the initial period of rest and cold-packs, your symptoms (together with the doctor's recommendations) will determine how rapidly you can get back to full activity. Usually this means "do what feels okay, but don't do things that hurt." If re-examination was recommended, it's important to follow up as instructed. Call the doctor or return any time if pain increases, if swelling becomes severe, if you develop numbness or weakness in an injured extremity, or if any other alarming symptoms occur. Ice & Elevation Apply ice packs frequently against the painful area. Many different schedules are recommended, such as "20 minutes on, 20 minutes off" or "one hour ice, two hours rest." If you need to work, you may need to go longer between ice treatments. You should plan to have the area ice packed AT LEAST one-fourth of the time. The ice should be applied over the wrap, tape, or splint, or over a layer of cloth -- not directly against the skin. Some ice bags have a built-in cloth and can be put directly on the skin. Your injured part should be elevated as much as possible over the next 48 hours. Try to keep the injury above the level of the heart. Avoid use of the injured area. Elevation and rest will decrease the swelling. The x-rays were negative for any fracture or dislocation. Please take the pain medication as prescribed to help with pain and inflammation. Follow-up with your primary care provider if not improving over the next 2 to 3 days. Prescriptions: Oxycodone HCl/Acetaminophen [Percocet 5-325 mg Tablet] 1 tab PO Q4H PRN #15 tablet PRN Reason: Referrals: CORRINA CANALES MD [Primary Care Provider] - Follow up as needed
[2019-03-15 17:52] VITALS: BP 135/67
== END 2019-03-15 18:03 | disposition home or self-care (01) ==
LOC: ER 10:52
DX: M25.552 Pain in left hip (principal); W10.9XXA Fall (on) (from) unspecified stairs and steps, initial encounter; Y92.008 Other place in unspecified non-institutional (private) residence as the place of occurrence of the external cause; Z79.01 Long term (current) use of anticoagulants; Z87.898 Personal history of other specified conditions; Z79.899 Other long term (current) drug therapy; Z87.891 Personal history of nicotine dependence; I10 Essential (primary) hypertension
CPT/HCPCS: 96376; 99284; 96374; 36415; 85025; 85610; 85730; 80048; 74177; J1170

== ENCOUNTER 2019-04-18 20:11 | Emergency (ER) | payer MEDICARE, MEDICAID ==
--- NOTE | 2019-04-18 20:32 | ER Document Report ---
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 Patient states that he does have pain with weightbearing, but does ambulate with a single-point cane. Pain does not radiate. He has not noticed any bruising or swelling. Denies drug allergies. No other concerns or complaints. Pt is on xarelto 2ndary to DVT. Denies any headache, fever, neck pain, URI, sore throat, chest pain, palpitations, syncope, cough, shortness of breath, wheeze, dyspnea, abdominal pain, nausea/vomiting/diarrhea, urinary retention, dysuria, hematuria, or rash. - ROS Systems Reviewed and Negative: Yes All other systems reviewed and negative - REPRODUCTIVE Reproductive: DENIES: : Past Medical History - Social History Smoking Status: Unknown if Ever Smoked Family History: Reviewed & Not Pertinent - Past Medical History Cardiac Medical History: Reports: Hx Heart Attack, Hx Hypercholesterolemia, Hx Hypertension Renal/ Medical History: Denies: Hx Peritoneal Dialysis Psychiatric Medical History: Reports: Hx Depression Past Surgical History: Reports: Hx Cardiac Catheterization - filter, Hx Orthopedic Surgery - Immunizations Hx Diphtheria, Pertussis, Tetanus Vaccination: Yes Vertical Provider Document - CONSTITUTIONAL Agree With Documented VS: Yes Notes: PHYSICAL EXAMINATION: GENERAL: Well-appearing, well-nourished and in no acute distress. LUNGS: Breath sounds clear to auscultation bilaterally and equal. No wheezes r ales or rhonchi. HEART: Regular rate and rhythm without murmurs, rubs, gallops. Musculoskeletal: Lt foot/ankle: No ecchymosis, obvious swelling, or deformity. FROM to passive/active. Strength 5+/5. N/V intact distal. + tenderness to the medial malleolus and medial foot. Achilles intact. Lis Franc maneuver neg. Anterior drawer neg. Extremities: Trace pitting edema LLE (chronic per pt since surgeries/DVT). Peripheral pulses 2+. Capillary refill less than 3 seconds. NEUROLOGICAL: Normal speech, limping gait. Normal sensory, motor exams PSYCH: Normal mood, normal affect. SKIN: Warm, Dry, normal turgor, no rashes or lesions noted. - INFECTION CONTROL TRAVEL OUTSIDE OF THE [place] IN LAST 30 DAYS: No Course - Re-evaluation Re-evalutation: 04/18/19 21:55 Patient is an afebrile, well-hydrated, 38-year-old male who presents to the ED with left foot/ankle pain which I suspect to be a sprain versus strain. Vitals are acceptable without any significant tachycardia, tachypnea, or hypoxia. PE is otherwise unremarkable for any neurovascular compromise, obvious tendon/ligament rupture, obvious fracture/dislocation, septic joint. XR's neg. Ankle stirrup will be provided. Pt given tylenol PO. Patient is nontoxic- appearing. Patient is able to ambulate and weight-bear although he is limping. No other labs or imaging warranted at this time based on H&P. Conservative measures otherwise for symptoms. Recheck with your PCM in 3-5 days. Consider consult orthopedics. Return to the ED with any worsening/concerning symptoms otherwise as reviewed in discharge. Patient is in agreement. Discharge - Discharge Clinical Impression: Left foot pain Left ankle pain Qualifiers: Chronicity: acute Qualified Code(s): M25.572 - Pain in left ankle and joints of left foot Condition: Stable Disposition: HOME, SELF-CARE Additional Instructions: Rest, Ice, Compression, Elevation Tylenol/ibuprofen as needed Light stretches daily Strength exercises as able Moist heat and massage may help F/u with your PCP in 3-5 days for a recheck Consider consult(s) with Orthopedics/physical therapy for ongoing/worsening symptoms Return to the ED with any worsening symptoms and/or development of fever, headache, chest pain, palpitations, syncope, shortness of breath, trouble breathing, abdominal pain, n/v/d, muscle weakness/paralysis, numbness/tingling, swelling, redness, or other worsening symptoms that are concerning to you. Forms: Elevated Blood Pressure Referrals: CORRINA CANALES MD [Primary Care Provider] - Follow up as needed [facility] [Provider Group] - Follow up as needed
[2019-04-18] MEDS ORDERED: ACETAMINOPHEN 325 MG TABLET PO ONE (20:55)
--- NOTE | 2019-04-18 21:56 | RADIOLOGY REPORT (SQ) ---
3 VIEWS OF LEFT FOOT AND ANKLE EXAM DATE: 04/18/2019 8:28 PM [facility] HISTORY: Medial ankle pain s/p injury. COMPARISON: None. FINDINGS: The ankle mortise is preserved on these nonstress views. No acute fracture is seen. There is mild surrounding soft tissue swelling. Generalized osteopenia is present. IMPRESSION: No acute fracture or malalignment.
--- NOTE | 2019-04-18 21:56 | RADIOLOGY REPORT (SQ) ---
3 VIEWS OF LEFT FOOT AND ANKLE EXAM DATE: 04/18/2019 8:28 PM [facility] HISTORY: Medial ankle pain s/p injury. COMPARISON: None. FINDINGS: The ankle mortise is preserved on these nonstress views. No acute fracture is seen. There is mild surrounding soft tissue swelling. Generalized osteopenia is present. IMPRESSION: No acute fracture or malalignment.
[2019-04-19 01:27] VITALS: BP 140/80
== END 2019-04-18 22:25 | disposition home or self-care (01) ==
LOC: ER 20:11
DX: M79.672 Pain in left foot (principal); M25.572 Pain in left ankle and joints of left foot; X50.9XXA Other and unspecified overexertion or strenuous movements or postures, initial encounter; I82.402 Acute embolism and thrombosis of unspecified deep veins of left lower extremity; Z79.01 Long term (current) use of anticoagulants; R60.0 Localized edema; I10 Essential (primary) hypertension
CPT/HCPCS: 99283; 73610; 73630; L1902; A9270